=== PATIENT | male | born 1955 | race Caucasian/White ===

== ENCOUNTER 2020-08-02 08:31 | Outpatient (CLI) | payer OTHER, SELFPAY ==
--- NOTE | ~2020-08-02 | MR_ITS ---
EXAMINATION: MR brain/brain stem wo/w con EXAM DATE: 08/02/2020 09:59 INDICATION: Brain bleed. TECHNIQUE: Magnetic resonance imaging (MRI) of the brain/brain stem obtained without contrast. Sagit siddhartha T1, axial diffusion, gradient echo (T2*), T1, T2, FLAIR sequences obtained. Patient was then inj ected with 20 cc intravenous Multihance contrast. Axial and coronal postcontrast T1 weighted sequence s obtained. There is no prior study for comparison. FINDINGS: There are no areas of restricted diffusion to suggest acute infarction. There is no acute hemorrhage seen on the T2*, a hemosiderin sensitive sequence. No intraparenchymal brain mass lesion. There a few scattered periventricular and subcortical T2/FLAIR signal hyperintensity, nonspecific bu t probably related to small vessel ischemic disease (microangiopathy). There are no extra-axial col lections. Flow voids are seen in the cerebral arteries on the T2-weighted sequences consistent with their expected patency. The orbits are unremarkable. Soft tissue is unremarkable. 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 No bra in bleed. Reviewed, dictated and finalized at location B. IMPRESSION: Some scattered punctate white matter hyperintensities likely mild m icroangiopathy. No brain bleed.
[2020-08-02 09:38] LABS: Estimated Glomerular Filt Rate > 60
== END 2020-08-02 08:32 | disposition home or self-care (01) ==
LOC: ANHIMG 08:38
DX: I61.9 Nontraumatic intracerebral hemorrhage, unspecified (principal); R93.0 Abnormal findings on diagnostic imaging of skull and head, not elsewhere classified
CPT/HCPCS: 70553; A9577

== ENCOUNTER 2024-07-14 08:39 | Emergency (ER) | payer MEDICARE, SELFPAY ==
--- NOTE | 2024-07-14 08:48 | ED.SKABFB ---
HPI - Skin/Abscess/Foreign Bdy General Chief complaint: Skin/Abscess/Foreign Body Stated complaint: Lump on chest Time Seen by Provider: 07/14/24 08:48 Source: patient, RN notes reviewed and old records reviewed Mode of arrival: ambulatory Limitations: no limitations History of Present Illness HPI narrative: Patient presents with a painful pustule to the right chest wall. He reports that he had a small pustule for several months, he began squeezing it a couple of days ago, now it has grown significantly. He reports that it has become so painful that he was unable to sleep in position of comfort last night. No active drainage. Denies fever, chills, sweats Related Data Home Medications Medication Instructions Recorded Confirmed amlodipine 5 mg tablet mg 07/14/24 atorvastatin 20 mg tablet mg 07/14/24 hydrochlorothiazide 12.5 mg tablet mg 07/14/24 omeprazole 20 mg capsule,delayed 20 mg PO DAILY 07/14/24 07/14/24 release tamsulosin 0.4 mg capsule mg PO 07/14/24 Allergies Allergy/AdvReac Type Severity Reaction Status Date / Time No Known Allergies Allergy Unknown Verified 07/14/24 08:59 Review of Systems Review of Systems: All systems reviewed & are unremarkable except as noted in HPI and below Constitutional: Constitutional: Reports no additional constitutional complaints ENT: Reports system reviewed and no additional complaints, except as documented Cardiovascular: Cardiovascular: Reports no additional cardiovascular complaints Respiratory: Respiratory: Reports no additional respiratory complaints Gastrointestinal: Gastrointestinal: Reports no additional gastrointestinal complaints Integumentary/Breasts: Skin/Breast: Reports as per HPI PMFSH Comments At the time of my signature, I reviewed and agree with the nursing past medical, surgical, social, and family history. There is no relevant family history pertinent to the patient complaint. Exam Const: General: cooperative, no acute distress, alert and awake Orientation/consciousness: oriented to person, oriented to place and oriented to time HENMT: Head: normal to inspection Resp: Effort & Inspection: normal respiratory effort and able to speak in complete sentences Auscultation: clear to auscultation bilaterally, no crackles, no rales, no rhonchi and no wheezes Cardio: Palpation: normal PMI Rate: regular rate Rhythm: regular rhythm Heart sounds: S1 normal heart sound present and S2 normal heart sound present Skin: Lesions: lesion noted ( 3 x 3 pustule to right chest) Neuro: General: oriented to person, oriented to place and oriented to time Cranial nerves: Yes CN's II-XII intact bilaterally Psych: Appearance: grossly normal Thought process: Normal thought process present Insight: Good insight present (Psych) Judgement: Good judgement present (Psych) Course Course Level of Care: Express Care Visit Vital Signs Vital signs: Vital Signs Temperature 97.2 F L 07/14/24 08:59 Pulse Rate 68 07/14/24 08:59 Respiratory Rate 18 07/14/24 08:59 Blood Pressure 139/83 07/14/24 08:59 Pulse Oximetry 98 07/14/24 08:59 Oxygen Delivery Room Air 07/14/24 08:59 Temperature 97.2 F L 07/14/24 09:01 Pulse Rate 68 07/14/24 09:01 Respiratory Rate 18 07/14/24 09:01 Blood Pressure 139/83 07/14/24 09:01 Pulse Oximetry 98 07/14/24 09:01 Oxygen Delivery Room Air 07/14/24 09:01 Reviewed Procedures Abscess I/D chest: Date of Incision: 07/14/24 Time of Incision: 09:50 Side (if applicable): right Local Anesthetic: lidocaine 1% Amount of anesthesia used (mL): 6 Technique: incised with #11 blade Amount of fluid expressed (mL): 5 Irrigation: No Packing used?: none I&D Results: Pus and Blood Abcess I&D Additional Comments: patient tolerated procedure well with no complications. Culture obtained MDM - Skin/Abscess/Foreign Bdy MDM Narrative Medi
[2024-07-14 08:59] VITALS: BP 139/83; PULSE 68; RESP 18; TEMP 36.2; O2SAT 98
[2024-07-14 09:01] VITALS: BP 139/83; PULSE 68; RESP 18; TEMP 36.2; O2SAT 98
[2024-07-14] MEDS: LIDOCAINE HCL 1% LOCAL INJ 2 ML AMPUL 6 ML INFILTRATE (09:32)
== END 2024-07-14 10:07 | disposition home or self-care (01) ==
PROVIDERS: Emergency Provider Nurse Practitioner Family
DX: L02.213 Cutaneous abscess of chest wall (principal); K21.9 Gastro-esophageal reflux disease without esophagitis; Z86.73 Personal history of transient ischemic attack (TIA), and cerebral infarction without residual deficits; Z85.828 Personal history of other malignant neoplasm of skin; Z85.72 Personal history of non-Hodgkin lymphomas
CPT/HCPCS: 10060; 87070; 87075; 87205; 99213; G0463